=== PATIENT | male | born 1940 | race Caucasian/White ===

== ENCOUNTER 2021-07-31 08:00 | Outpatient (CLI) | payer OTHER | END 2021-07-31 08:30 | disposition home or self-care (01) | LOC: PPH VACUNA 08:00 | PROVIDERS: ATTEND Emergency Medicine Pediatric Emergency Medicine | DX: Z23 Encounter for immunization (principal) ==

== ENCOUNTER 2022-02-11 15:25 | Outpatient (CLI) | payer OTHER | END 2022-02-11 15:35 | disposition home or self-care (01) | LOC: PPH VACUNA 15:25 | PROVIDERS: ATTEND Emergency Medicine Pediatric Emergency Medicine | DX: Z23 Encounter for immunization (principal) ==

== ENCOUNTER 2022-07-31 14:38 | Outpatient (CLI) | payer OTHER | END 2022-07-31 14:43 | disposition home or self-care (01) | LOC: PPH VACUNA 14:38 | PROVIDERS: ATTEND Emergency Medicine Pediatric Emergency Medicine | DX: Z23 Encounter for immunization (principal) ==

== ENCOUNTER → 2023-03-27 | Outpatient (CLI) | payer OTHER | END | disposition home or self-care (01) | LOC: PPH VACUNA 13:45 | PROVIDERS: ATTEND Emergency Medicine Pediatric Emergency Medicine | DX: Z23 Encounter for immunization (principal) ==

== ENCOUNTER 2023-11-25 12:29 | Outpatient (CLI) | payer OTHER | END 2023-11-25 12:34 | disposition home or self-care (01) | LOC: RAD 12:29 | PROVIDERS: ATTEND Family Medicine | DX: M25.511 Pain in right shoulder (principal); R07.9 Chest pain, unspecified ==

== ENCOUNTER 2025-08-05 17:59 | Emergency (ER) | payer OTHER ==
[~2025-08-05] VITALS: Ht 182.9 cm; Wt 59.0 kg
[2025-08-05 19:54] LABS: BASO % 1.1 % (0.1-1.2); EOS # 0.22 (0.04-0.54); EOS % 2.1 % (0.7-7.0); LYMPH # 2.39 (1.18-3.74); LYMPH % 22.6 % (19.3-53.1); MEAN PLATELET VOLUME 9.00 fl (9.4-12.4); MONO # 0.91 (0.24-0.82); MONO % 8.6 % (4.7-12.5); NEUT # 6.88 (1.56-6.13); NEUT % 65.1 % (34.0-71.1); RED CELL DISTRIBUTION WIDTH 14.0 % (11.6-14.4)
[2025-08-05] MEDS ORDERED: 0.9 % SODIUM CHLORIDE 1,000 ML IV ONE (20:00)
[2025-08-05] MEDS ORDERED: 0.9 % SODIUM CHLORIDE 250 ML IV ONE (20:00)
[2025-08-05 20:28] LABS: INR 1.09
[2025-08-05 20:39] LABS: ALT/SGPT 18.0 U/L (12-78); AST/SGOT 12.0 U/L (15-37); BILIRUBIN TOTAL 0.27 mg/dL (0.3-1.2); BUN CREA RATIO 26.0 (7.0-25.0); CREATININE SERUM 0.97 mg/dL (0.70-1.30); GFR 73.38; GLOBULINA 3.5 G/DL (2.4-3.5); GLUCOSE FASTING 98.0 mg/dL (65-100); LDH 90.0 U/L (87-241); OSMOLALITY SERUM 287.0 MOSM/KG (275-295); PHOSPHOKINASE CREATININE 20.0 U/L (39-308)
[2025-08-05 22:24] LABS: ALT/SGPT 18 U/L (12-78); AST/SGOT 12 U/L (15-37); BILIRUBIN TOTAL 0.32 mg/dL (0.3-1.2); BUN CREA RATIO 28 (7.0-25.0); CREATININE SERUM 0.89 mg/dL (0.70-1.30); GFR 81.05; GLOBULINA 3.2 G/DL (2.4-3.5); GLUCOSE FASTING 76 mg/dL (65-100); OSMOLALITY SERUM 286 MOSM/KG (275-295)
[2025-08-05 22:37] LABS: CKMB < 1.0 NG/ML (0.5-3.6); PHOSPHOKINASE CREATININE 19 U/L (39-308)
[2025-08-05 22:43] LABS: URINE APPEARANCE Clear; URINE BILIRRUBIN Negative (NEGATIVE); URINE BLOOD Negative; URINE COLOR Yellow; URINE GLUCOSE Negative (NEGATIVE); URINE KETONE Negative (NEGATIVE); URINE LEUKOCYTE Negative; URINE NITRATE Negative; URINE PROTEIN Negative (NEGATIVE); URINE UROBILINOGEN 0.2 E.U./dl
[2025-08-05 22:47] LABS: URINE EPITHELIAL CELLS 1.5 uL (0.0-38.8); URINE RBC 3.0 uL (0.0-20.8)
[2025-08-05 22:57] LABS: URINE BACTERIA 1.1 uL (0.0-1933); URINE CAST 0.14 uL (0.0-1.40); URINE WBC 0.7 uL (0.0-23.2)
[2025-08-05] MEDS ORDERED: DEXTROSE 50 % IN WATER 0.5 G/ML VIAL IV ONE ×2 (23:40→23:45)
== END 2025-08-06 01:00 | disposition home or self-care (01) ==
LOC: ER 17:59
DX: I95.89 Other hypotension (principal); R53.1 Weakness; Z85.89 Personal history of malignant neoplasm of other organs and systems; G31.01 Pick's disease; F02.80 Dementia in other diseases classified elsewhere, unspecified severity, without behavioral disturbance, psychotic disturbance, mood disturbance, and anxiety
CPT/HCPCS: 36415; 70450; 93005; 93041; 96365; 96366; 99284; J3490; J7030

== ENCOUNTER 2025-08-30 14:48 | Outpatient (CLI) | payer OTHER | END 2025-08-30 15:00 | disposition home or self-care (01) | LOC: MRI 14:48 | PROVIDERS: ATTEND Psychiatry & Neurology Clinical Neurophysiology | DX: F03.90 Unspecified dementia, unspecified severity, without behavioral disturbance, psychotic disturbance, mood disturbance, and anxiety (principal) | CPT/HCPCS: 70551 ==